=== PATIENT | male | born 1960 | race Caucasian/White ===

== ENCOUNTER → 2025-09-03 | Outpatient (CLI) | payer MEDICARE, BC | LOC: CSHSLEEP 09:14 | PROVIDERS: ATTEND Internal Medicine | DX: R06.3 Periodic breathing (principal); K21.9 Gastro-esophageal reflux disease without esophagitis; E66.9 Obesity, unspecified; Z68.41 Body mass index [BMI] 40.0-44.9, adult; R06.83 Snoring; I25.10 Atherosclerotic heart disease of native coronary artery without angina pectoris; I11.9 Hypertensive heart disease without heart failure | CPT/HCPCS: 95810 ==